=== PATIENT | male | born 1995 | race Caucasian/White ===

== ENCOUNTER 2017-07-04 13:42 | Emergency (ER) | payer MEDICAID, OTHER ==
[~2017-07-04] VITALS: Ht 167.6 cm; Wt 66.5 kg
[2017-07-04 14:01] VITALS: Ht 167.6 cm; Wt 66.5 kg
[2017-07-04] MEDS ORDERED: KETOROLAC 60 MG INJ IM STA (14:53)
--- NOTE | 2017-07-04 15:40 | RADRPT ---
PROCEDURE: Left knee series. CLINICAL INDICATION: Left knee pain TECHNIQUE: Three views of the left knee. COMPARISON: None available FINDINGS: There is normal mineralization and alignment of the left knee. No acute fracture or dislocation is seen. Joint spaces are well maintained. There is no evidence of osteophyte formation or erosion. No definite joint effusion is seen. The soft tissues are within normal limits. IMPRESSION: 1. Unremarkable left knee x-ray series. Of text in the [place] .Theo David MD, MD Date Time Electronically viewed and signed by .Theo David MD, on 07/04/2017 15:40 .B/
[2017-07-04] MEDS ORDERED: IBUP-1542 PO (16:17)
--- NOTE | 2017-07-04 16:41 | ERD ---
ER Documentation Chief Complaint Date/Time DATE: 07/04/17 TIME: 16:37 Chief Complaint Complains of left knee pain since yesterday HPI . This is a 21-year-old male presents to the ER with left knee pain that started yesterday after he was kneeling down and working. Patient states that area became swollen and area is more painful now. He denies any fevers or chills. He denies any other trauma to the knee. He denies any numbness or tingling to the knee. ROS 12 point review of systems was done, all negative except per HPI. Medications Home Meds Active Scripts Ibuprofen* (Motrin*) 600 Mg Tab, 600 MG PO Q6, #30 TAB Prov:LEELEE GARCIA 07/04/17 Allergies Allergies: Coded Allergies: No Known Drug Allergies (Verified Allergy, Unknown, 02/23/14) PMhx/Soc History of Surgery: No Anesthesia Reaction: No Hx Neurological Disorder: No Hx Respiratory Disorders: No Hx Cardiac Disorders: No Hx Psychiatric Problems: No Hx Miscellaneous Medical Probl: No Hx Alcohol Use: No Hx Substance Use: No Hx Tobacco Use: No Physical Exam Vitals Vital Signs Date Time Temp Pulse Resp B/P Pulse Ox O2 Delivery O2 Flow Rate FiO2 07/04/17 14:01 98.0 56 20 126/64 96 Physical Exam GENERAL: The patient is well developed and appropriate for usual state of health , in no apparent distress. HEENT: Atraumatic CHEST: Clear to auscultation bilaterally. There are no rales, wheezes or rhonchi. HEART: Regular rate and rhythm. No murmurs, clicks, rubs or gallops. EXTREMITIES: Left knee: Patient is able to bear weight and ambulate without pain. No surface trauma. No overlying erythema or warmth. The Left knee is without obvious asymmetry when compared to the right knee. Patient has painful and limited flexion of the right knee. he is able to fully extend knee, internal and external rotation. Not tender to palpation over the patella, no effusion. + bursitis. Not tender over the medial or lateral joint line, or the medial or lateral tibial plateau. Not tender to palpation over the proximal fibular head. No quadricep tenderness. No laxity of the ACL, PCL, MCL or LCL. Negative Antoinette test. Negative anterior and posterior drawer. Distal motor neurovascular status intact. NEURO: Alert and oriented SKIN: The skin is warm and dry. Results 24 hrs Current Medications Medications (Trade) Dose Ordered Sig/Xenia Route PRN Reason Start Time Stop Time Status Last Admin Dose Admin Ketorolac Tromethamine (Toradol) 60 mg ONCE STAT IM 07/04/17 14:53 07/04/17 14:57 DC 07/04/17 15:39 [place] [id number] Rad[address] Main Line: [phone] DIAGNOSTIC IMAGING REPORT Patient: MINNIE BOYER : 1995 Age: 21 Sex: M MR #: [id number] DOS: 07/04/17 0000 Ordering MD: LEELEE GARCIA PA-C Location: [facility] Room/Bed: PROCEDURE: Left knee series. CLINICAL INDICATION: Left knee pain TECHNIQUE: Three views of the left knee. COMPARISON: None available FINDINGS: There is normal mineralization and alignment of the left knee. No acute fracture or dislocation is seen. Joint spaces are well maintained. There is no evidence of osteophyte formation or erosion. No definite joint effusion is seen. The soft tissues are within normal limits. IMPRESSION: 1. Unremarkable left knee x-ray series. Of text in the [place] .Theo David MD, MD Date Time Electronically viewed and signed by .Theo David MD, MD on 2016 15:40 .B/ CC: LEELEE GARCIA Procedures/MDM Differential diagnosis includes but is not limited to knee contusion, knee sprain, ligament injury, patellar dislocation, joint dislocation, patellar or tibial plateau fracture, Mcginnis's cyst, DVT, meniscus tear, prepatellar bursitis , septic joint, gout, tumor. This is a 21-year-old male presents to the ER with left knee pain after he was kneeling down his knee for a long period of time. Patient does appear to have minor bursitis of the knee. Suspicion for fracture , dislocation, meniscus tear is low. Patient is afebrile and well-appearing suspicion for infectious etiology such as septic joint is low. Patient will be sent home with ibuprofen. He is to follow-up with his primary care doctor within 1-2 days return to ER sooner if symptoms worsen. My medical decision making shared with the patient understands and agrees with plan. Departure Diagnosis: Primary Impression: Knee pain Condition: Stable Patient Instructions: Bursitis Additional Instructions: Llame al doctor YOKO y nikole maddi EMMA PARA DENTRO DE 1-2 AVENDANO.Dgale a la secretaria que nosotros le instruimos hacer esta emma.Avise o llame si sevilla condicin se empeora antes de la emma. Regresa aqui si peor o no mejor. LEELEE GARCIA Jul 04, 2017 16:41
[2017-07-04 16:47] VITALS: RESP 18
== END 2017-07-04 16:48 | disposition home or self-care (01) ==
LOC: FTE 13:42
DX: M25.562 Pain in left knee (principal)
CPT/HCPCS: 73562; 96372; J1885; Z7502

== ENCOUNTER 2018-05-10 15:30 | Emergency (ER) | END 2018-05-10 17:41 | disposition home or self-care (01) ==

== ENCOUNTER 2019-05-09 23:29 | Emergency (ER) | payer OTHER ==
[~2019-05-09] VITALS: Ht 172.7 cm; Wt 75.0 kg
[~2019-05-09 23:29] MED LIST: IBUP-1542 PO
[2019-05-09 23:33] VITALS: Ht 172.7 cm; Wt 75.0 kg
--- NOTE | 2019-05-10 00:24 | PSY ---
Date/Time of Note Date/Time of Note DATE: 05/10/19 TIME: 00:23 Psychiatric Subjective Eval Consent Pt consented to telemedicine: Yes Subjective Evaluation Patient location: emergency Chief Complaint: BIB SELF, CC: METH, MARIJUANA OVERDOSE Medical history Problems Medical Problems: (1) Knee pain Status: Acute (2) Methamphetamine intoxication Status: Acute (3) Methamphetamine intoxication Status: Acute Allergies: Coded Allergies: No Known Drug Allergies (Verified Allergy, Unknown, 02/23/14) Psychiatric Objective Eval Mental Status Examination: Laboratory Results Laboratory Tests Test 05/09/19 23:47 White Blood Count 10.2 10^3/ul Red Blood Count 6.02 10^6/ul Hemoglobin 18.1 g/dl Hematocrit 52.9 % Mean Corpuscular Volume 87.9 fl Mean Corpuscular Hemoglobin 30.1 pg Mean Corpuscular Hemoglobin Concent 34.2 g/dl Red Cell Distribution Width 12.4 % Platelet Count 361 10^3/UL Mean Platelet Volume 9.3 fl Immature Granulocytes % 0.200 % Neutrophils % 48.9 % Lymphocytes % 41.2 % Monocytes % 8.2 % Eosinophils % 1.1 % Basophils % 0.4 % Nucleated Red Blood Cells % 0.0 /100WBC Immature Granulocytes # 0.020 10^3/ul Neutrophils # 5.0 10^3/ul Lymphocytes # 4.2 10^3/ul Monocytes # 0.8 10^3/ul Eosinophils # 0.1 10^3/ul Basophils # 0.0 10^3/ul Nucleated Red Blood Cells # 0.0 10^3/ul Assessment and Plan Recommendation/Plan Discharge Disposition: Community Legal Status: Voluntary Assessment Additional comments: IDENTIFYING INFORMATION: 23 year old Male patient who is currently located at the hospital and for whom psychiatric consultation was requested. SOURCES OF INFORMATION: The patient who appears to be somewhat reliable and the medical records; the nursing staff. Friend, Ms. Venessa Godwin, who appears to [place], [id number], assisted with the interview from [place]. CHIEF COMPLAINT: "water!". HISTORY OF PRESENT ILLNESS: The patient was interviewed via telemedicine in the presence of and under the supervision of nursing staff of the hospital. The consent to conducting this interview via telemedicine was obtained by the nursing staff at the hospital. DONNA Lizarraga reports that the patient presented with meth and MJ use. Friend denies the pt having SI, HI, safety concerns, past psychiatric contacts, medications trials. She reports of the patient was completely normal prior to using methamphetamine, alcohol, cannabis earlier today. She is not aware of the patient having any type of psychiatric problems other than using substances. The patient reports having used methamphetamine, marijuana, as well as alcohol and he reports that he is not feeling well. The patient denies having AH, VH, SI, paranoia, HI, persistent depression, anhedonia, hopelessness, helplessness. The patient reports drinking 4-5 drinks per day. Last drink was today. The patient denies having a history of alcohol withdrawal-induced tremors, seizures, delirium tremens, visual hallucinations, and denies having alcohol withdrawal-related hospitalizations. The patient reports using meth and MJ earlier today. Denies using meth daily. The patient denies using any other substances. In terms of past psychiatric history, the patient reports having a history of no past psychiatric hospitalizations. The patient reports having a history of no past suicide attempts. Past medication trials: denies. PAST MEDICAL HISTORY: none. CURRENT MEDICATIONS: none. ALLERGIES TO MEDICATIONS: NKDA. LABORATORY TESTS: pending. SOCIAL HISTORY: born and raised in [facility]; single, no children, employed, employed, no access to firearms. REVIEW OF SYSTEMS: Constitutional (e.g., fever, weight loss): negative; Eyes, Ears, Nose, Mouth, Throat: negative; Cardiovascular: negative; Respiratory: negative; Gastrointestinal: negative; Genitourinary: negative; Musculoskeletal: negative; Integumentary (skin and/or breast): negative; Neurological: negative; Psychiatric: as per HPI; Endocrine: negative; Hematologic/Lymphatic: negative; Allergic/Immunologic: negative. MENTAL STATUS EXAMINATION: General Appearance and Behavior: Calm at times, agitated at times, cooperative with the interview, somewhat distant with the current interviewer, makes poor eye contact, fairly-groomed, no abnormal movements noted. Speech: Regular rate, regular rhythm, normal latency, normal volume at times, loud at times, normal amount. Flow of thought: sequential, logical, goal-directed. Content of thought: no auditory hallucinations, no visual hallucinations, no delusions, no suicidal ideation; the patient is future-oriented, no homicidal ideation. Mood: "not very good". Affect: very anxious, reactive, full range. Attention: normal based on the interview. Insight: fair. Judgment: poor. Memory: normal based on the interview. Sensorium: alert and oriented to person, place and date. ASSESSMENT: The patient's presentation and history are consistent with the diagnosis of stimulant intoxication, alcohol use disorder, stimulant use disorder, cannabis use disorder. The patient presents with moderate agitation in the context of stimulant, alcohol, cannabis use. The patient has no prior psychiatric history as confirmed by his friend also. Based on collateral information, the patient was completely normal prior to using substances earlier today. PLAN: - Medication management: Would recommend starting alcohol withdrawal protocol per RITA. Would also consider administering thiamine, folic acid, multivitamin. Would start lorazepam 2 mg IM PRN severe agitation q4 hours - Labs: Please check Alcohol level, UDS. - Psychotherapy: Provided supportive psychotherapy and psychoeducation. - Disposition: If the patient's alcohol level is above the legal limit, then please reconsult psychiatry to determine disposition once the patient's alcohol level is below the legal limit. Please allow the patient to sleep at the emergency room, While his body metabolizes the substances that were used. We will remain available for reevaluation later on. If the patient returns to normal and becomes asymptomatic may discharge patient from the emergency room one alcohol level is below the legal limit. limit, then the patient is appropriate for the outpatient level of care at this time from a psychiatric perspective. The patient is not an imminent danger to self or others. The patient is motivated for outpatient treatment. The patient agrees to be compliant with outpatient follow-up appointments and pharmacotherapy as indicated. Would recommend that the patient follows up with a psychiatrist. Resources for outpatient follow-up will be provided by the hospital staff. The patient's risk for completed suicide is moderate in comparison to the general population. Risk factors include marital status, gender, age, substance use disorder. Protective factors include race, symptoms of schizophrenia, bipolar disorder, major depressive disorder, anxiety disorder, personality disorder, no access to firearms, no history of suicide attempts, fair social support, no major chronic medical problems. The patient's risk for completed suicide cannot be modified more effectively with inpatient admission at this time. The patient is not an imminent danger to self or others at this time and does not meet the legal criteria for involuntary admission. Risks, benefits, alternatives were discussed and the patient provided informed consent to proceed with the above plan. Will remain available for reevaluation as per above. Discussed about the above plan with Dr. Soliz. BRIDGETTE VU MD May 10, 2019 00:24
[2019-05-10] MEDS ORDERED: LORAZEPAM 2 MG INJ IM ONE (00:30)
[2019-05-10] MEDS ORDERED: HALOPERIDOL 5 MG INJ IM ONE (00:30)
--- NOTE | 2019-05-10 02:33 | ERD ---
ER Documentation Chief Complaint Chief Complaint BIB SELF, CC: METH, MARIJUANA OVERDOSE HPI Is a 23-year-old male brought in by self with complaints of meth and marijuana overdose. Patient was very agitated upon arrival. He was not making much sense. But he does admit to using drugs today. Telemetry psychiatry ordered ROS All systems reviewed and are negative except as per history of present illness. Medications Home Meds Active Scripts Ibuprofen* (Motrin*) 600 Mg Tab, 600 MG PO Q6, #30 TAB Prov:LEELEE GARCIA 07/04/17 Allergies Allergies: Coded Allergies: No Known Drug Allergies (Verified Allergy, Unknown, 02/23/14) PMhx/Soc History of Surgery: No Anesthesia Reaction: No Hx Neurological Disorder: No Hx Respiratory Disorders: No Hx Cardiac Disorders: No Hx Psychiatric Problems: No Hx Miscellaneous Medical Probl: No Hx Alcohol Use: Yes (Occasionally) Hx Substance Use: No Hx Tobacco Use: Yes Smoking Status: Current every day smoker Physical Exam Vitals Vital Signs Date Temp Pulse Resp B/P (MAP) Pulse Ox O2 O2 Flow FiO2 Time Delivery Rate 05/09/19 98.9 112 25 126/65 100 23:33 (85) Physical Exam Const: No acute distress Head: Atraumatic Eyes: Normal Conjunctiva ENT: Normal External Ears, Nose and Mouth. Neck: Full range of motion. No meningismus. Resp: Clear to auscultation bilaterally Cardio: Regular rate and rhythm, no murmurs Abd: Soft, non tender, non distended. Normal bowel sounds Skin: No petechiae or rashes Back: No midline or flank tenderness Ext: No cyanosis, or edema Neur: Awake and alert Psych: Normal Mood and Affect Result Diagram: 05/09/19 2347 05/09/19 2347 Results 24 hrs Laboratory Tests Test 05/09/19 23:47 05/10/19 01:14 White Blood Count 10.2 10^3/ul Red Blood Count 6.02 10^6/ul Hemoglobin 18.1 g/dl Hematocrit 52.9 % Mean Corpuscular Volume 87.9 fl Mean Corpuscular Hemoglobin 30.1 pg Mean Corpuscular Hemoglobin Concent 34.2 g/dl Red Cell Distribution Width 12.4 % Platelet Count 361 10^3/UL Mean Platelet Volume 9.3 fl Immature Granulocytes % 0.200 % Neutrophils % 48.9 % Lymphocytes % 41.2 % Monocytes % 8.2 % Eosinophils % 1.1 % Basophils % 0.4 % Nucleated Red Blood Cells % 0.0 /100WBC Immature Granulocytes # 0.020 10^3/ul Neutrophils # 5.0 10^3/ul Lymphocytes # 4.2 10^3/ul Monocytes # 0.8 10^3/ul Eosinophils # 0.1 10^3/ul Basophils # 0.0 10^3/ul Nucleated Red Blood Cells # 0.0 10^3/ul Sodium Level 144 mmol/L Potassium Level 3.1 mmol/L Chloride Level 103 mmol/L Carbon Dioxide Level 21 mmol/L Anion Gap 20 Blood Urea Nitrogen 10 mg/dl Creatinine 0.99 mg/dl Est Glomerular Filtrat Rate mL/min > 60 mL/min Glucose Level 127 mg/dl Calcium Level 10.9 mg/dl Total Bilirubin 0.4 mg/dl Direct Bilirubin 0.00 mg/dl Indirect Bilirubin 0.4 mg/dl Aspartate Amino Transf (AST/SGOT) 39 IU/L Alanine Aminotransferase (ALT/SGPT) 42 IU/L Alkaline Phosphatase 124 IU/L Total Protein 9.8 g/dl Albumin 5.5 g/dl Globulin 4.30 g/dl Albumin/Globulin Ratio 1.27 Salicylates Level < 1.0 mg/dl Acetaminophen Level < 10.0 ug/ml Ethyl Alcohol Level 29.0 mg/dl Urine Color STRAW Urine Clarity CLEAR Urine pH 7.0 Urine Specific Byron 1.004 Urine Ketones TRACE mg/dL Urine Nitrite NEGATIVE mg/dL Urine Bilirubin NEGATIVE mg/dL Urine Urobilinogen NEGATIVE mg/dL Urine Leukocyte Esterase NEGATIVE Beatrice/ul Urine Hemoglobin NEGATIVE mg/dL Urine Glucose NEGATIVE mg/dL Urine Total Protein NEGATIVE mg/dl Urine Opiates Screen Negative Urine Barbiturates Negative Urine Amphetamines Screen Positive Urine Benzodiazepines Screen Negative Urine Cocaine Screen Negative Urine Cannabinoids Negative Current Medications Medications Dose Sig/Xenia Start Time Status Last (Trade) Ordered Route PRN Stop Time Admin Dose Reason Admin Lorazepam 2 mg ONCE ONCE 05/10/19 DC 05/10/19 (Ativan) IM 00:30 00:18 05/10/19 00:31 Haloperidol 5 mg ONCE ONCE 05/10/19 DC 05/10/19 (Haldol) IM 00:30 00:18 05/10/19 00:31 Procedures/MDM Patient's behavioral symptoms have stabilized while in the department. Patient is medically cleared and appropriate for psychiatric evaluation and work up. No e/o neurologic, toxic, infectious, or metabolic cause. Patient evaluated and found to be essentially under the influence of drugs. Required Haldol and Ativan for sedation. Will be reevaluated in the a.m. my oncoming physician for possible discharge Departure Diagnosis: Primary Impression: Methamphetamine intoxication Condition: Stable CRISTIAN BUITRAGO May 10, 2019 02:33
[2019-05-10 06:55] VITALS: BP 110/63; PULSE 64; RESP 16
== END 2019-05-10 06:55 | disposition home or self-care (01) ==
LOC: E/R 23:29
DX: F15.129 Other stimulant abuse with intoxication, unspecified (principal); F17.210 Nicotine dependence, cigarettes, uncomplicated
CPT/HCPCS: 80053; 80307; 81003; 85025; 96372; J1630; J2060; Z7502